=== PATIENT | male | born 1945 | race Caucasian/White ===

== ENCOUNTER 2016-10-17 18:37 | Inpatient (IN) | payer OTHER ==
[~2016-10-17] VITALS: Ht 177.8 cm; Wt 80.9 kg
--- NOTE | 2016-10-17 20:38 | ED ORDER SUMMARY ---
..... Patient: SULMA GONSALEZ OrderSheet [facility] VisitID: [id number] [place] [address] 70y, M Registration Date/Time: 10/17/2016 ORDER SHEET Weight: 79.3 kg Allergies: No Known Drug Allergy GENERAL ORDERS: CBC w Diff Urgent (19:10/17/2016 Gustavo Minor) (19:13 EIbety R.N.) CMP Urgent (19:10/17/2016 Gustavo Minor) (19:13 Mahad R.N.) UA-Culture if indicated Urgent (19:10/17/2016 Gustavo Minor) (Ack 19:24 SRedmond) PT with INR Urgent (19:10/17/2016 Gustavo Minor) (19:13 Mahad R.N.) PTT Urgent (19:10/17/2016 Gustavo Minor) (19:13 EIbety R.N.) Type & Screen Urgent (19:10/17/2016 Gustavo Minor) (19:13 Mahad R.N.) EKG - ER Stat (21:26 10/17/2016 Nicole Stanley verbal order read back to Gustavo Minor) (Ack 21:30 SRedmond) (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 (21:48 10/17/2016)] [Electronically signed by Susie Goldstein R.N. (21:53 10/17/2016)] [Electronically locked/signed by Susie Goldstein R.N. (21:53 10/17/2016)]
--- NOTE | 2016-10-17 20:38 | ED NURSING NOTES ---
Clinical Report - Nurses [facility] [address] [place] [address] 10/17/2016 18:38 Patient: SULMA GONSALEZ TRIAGE Triage time 18:40. Acuity: LEVEL 3. Chief Complaint: (hematemasis, hematochezia x 1 day with lightheadedness.). --18:45 Shannan Garcia R.N. 18:40 10/17/16. BP: 98/67. HR: 91. RR: 20. O2 saturation: 98%. Temp: 98.6 F. --18:45 Shannan Garcia R.N. Weight: 79.3 kg. Height/Length: 70 inches. BMI: 25.1. --18:44 Shannan Garcia R.N. Medications Levothyroxine Sodium Oral 80 mcg, daily. --18:42 Shannan Garcia R.N. Glucosamine Complex Oral. --18:42 Shannan Garcia R.N. Allergies No Known Drug Allergy. --18:41 Shannan Garcia R.N. History Historian: patient (EMS). This started today. He has had difficulty breathing. ( light headed, "cold sweat"). 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 SOCIAL HX: Light tobacco smoker (cigarette)- less than 1/2 a pack per day. History of occasional drug use: marijuana. Recently used drugs yesterday. No alcohol use. No infectious disease exposure. SELF HARM ASSESSMENT: A self harm assessment was performed. The patient answered "no" to the question "Do you have thoughts of harming or killing yourself?". Bedside precautions. --18:45 Shannan Garcia R.N. Interventions ID band on patient. --18:45 Shannan Garcia R.N. PHYSICAL ASSESSMENT 19:14 10/17/16. GENERAL / NEURO / PSYCH: Alert. Oriented X 4. Appears in no acute distress. HEENT: Pupils equal, round and reactive to light. No facial asymmetry noted. Mucous membranes are pink. RESPIRATORY: Breath sounds within normal limits. CVS: Normal sinus rhythm noted. Capillary refill less than 2 seconds. Pulses within normal limits. GI / : Abdomen soft. SKIN: Skin intact. Skin is warm and dry. Normal skin turgor. --19:14 Susie Goldstein R.N. NURSING PROGRESS NOTES 18:52 10/17/2016 Site #1 started prior to arrival by EMS via IV in the right antecubital space with an 18g angiocath. --19:02 Shannan Garcia R.N. 19:00 10/17/16. Care transferred and report received (from RANULFO Campbell). --19:00 Susie Goldstein R.N. ( chaperoned rectal exam with ). --19:03 Shannan Garcia R.N. 19:11 10/17/16. Patient ID band checked for patient name and birthdate: patient confirmed. Blood samples drawn from the peripheral IV site (prior to IV fluid start) by nurse ; labeled in presence of the patient and sent to lab: rainbow set and blood bank tube. Initial blood discarded. Line flushed with 10 mL normal saline post blood draw. --19:11 Susie Goldstein R.N. 19:13 10/17/2016 PROTONIX (Pantoprazole Sodium) IVP 80 mg given over 4 minute(s) via site #1. Allergies verified and confirmed 5 rights. IV patency established. IV site checked: no pain, redness, or swelling. IV flushed thoroughly pre- and post-medication administration. IVP given by RN. --19:13 Susie Goldstein R.N. 19:40 10/17/16. Cardiac rhythm: normal sinus rhythm. --19:40 Susie Goldstein R.N. 19:40 10/17/16. BP: 110/80. HR: 94. RR: 18. O2 saturation: 100%. Pain level now 0/10. --19:40 Susie Goldstein R.N. 20:45 10/17/16. Cardiac rhythm: normal sinus rhythm. The patient reports no complaints and he is resting quietly. --20:45 Susie Goldstein R.N. 20:45 10/17/16. BP: 124/96. HR: 100. RR: 18. O2 saturation: 100%. Pain level now 0/10. --20:45 Susie Goldstein R.N. 21:13 10/17/16. ( Waiting for admission orders. Room is ready.). --21:13 Susie Goldstein R.N. EKG time: (2136). EKG was ordered, performed by a tech and shown to the ED physician. --21:39 Jaime Cain, ER Executive Steward. DISPOSITION / DISCHARGE 21:20 10/17/2016 Site #[address] upon admission; patent. Good blood return present. Flushed with 5 mL saline; flushes easily. --21:20 Susie Goldstein R.N. 21:20 10/17/16. Cardiac rhythm: normal sinus rhythm. The goals identified in the patient's plan of care were met. Disposition: observation in Acute Care (). Report was given to a nurse via a phone call. Report included patient's care, treatment, medications, reviewed medication reconcilliation, and condition (including any recent changes or anticipated changes). All questions were answered. Report was acknowledged. (brent Moraes RN). --21:20 Susie Goldstein R.N. 21:20 10/17/16. BP: 104/78. HR: 88. RR: 18. O2 saturation: 100%. Temp: 98.5 F. Pain level now 0/10. --21:20 Susie Goldstein R.N. 21:45 10/17/16. Transported via stretcher. --21:45 Susie Goldstein R.N. 21:46 10/17/16. Departure time: 21:45 Oct 17 2016. --21:46 Susie Goldstein R.N. Locked/Released at 10/17/2016 21:53 by Susie Goldstein R.N.
--- NOTE | 2016-10-17 20:38 | ED NURSING NOTES ---
Clinical Report - Nurses [facility] [address] [place] [address] 10/17/2016 18:38 Patient: SULMA GONSALEZ TRIAGE Triage time 18:40. Acuity: LEVEL 3. Chief Complaint: (hematemasis, hematochezia x 1 day with lightheadedness.). --18:45 Shannan Garcia R.N. 18:40 10/17/16. BP: 98/67. HR: 91. RR: 20. O2 saturation: 98%. Temp: 98.6 F. --18:45 Shannan Garcia R.N. Weight: 79.3 kg. Height/Length: 70 inches. BMI: 25.1. --18:44 Shannan Garcia R.N. Medications Levothyroxine Sodium Oral 80 mcg, daily. --18:42 Shannan Garcia R.N. Glucosamine Complex Oral. --18:42 Shannan Garcia R.N. Allergies No Known Drug Allergy. --18:41 Shannan Garcia R.N. History Historian: patient (EMS). This started today. He has had difficulty breathing. ( light headed, "cold sweat"). 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 SOCIAL HX: Light tobacco smoker (cigarette)- less than 1/2 a pack per day. History of occasional drug use: marijuana. Recently used drugs yesterday. No alcohol use. No infectious disease exposure. SELF HARM ASSESSMENT: A self harm assessment was performed. The patient answered "no" to the question "Do you have thoughts of harming or killing yourself?". Bedside precautions. --18:45 Shannan Garcia R.N. Interventions ID band on patient. --18:45 Shannan Garcia R.N. PHYSICAL ASSESSMENT 19:14 10/17/16. GENERAL / NEURO / PSYCH: Alert. Oriented X 4. Appears in no acute distress. HEENT: Pupils equal, round and reactive to light. No facial asymmetry noted. Mucous membranes are pink. RESPIRATORY: Breath sounds within normal limits. CVS: Normal sinus rhythm noted. Capillary refill less than 2 seconds. Pulses within normal limits. GI / : Abdomen soft. SKIN: Skin intact. Skin is warm and dry. Normal skin turgor. --19:14 Susie Goldstein R.N. NURSING PROGRESS NOTES 18:52 10/17/2016 Site #1 started prior to arrival by EMS via IV in the right antecubital space with an 18g angiocath. --19:02 Shannan Garcia R.N. 19:00 10/17/16. Care transferred and report received (from RANULFO Campbell). --19:00 Susie Goldstein R.N. ( chaperoned rectal exam with ). --19:03 Shannan Garcia R.N. 19:11 10/17/16. Patient ID band checked for patient name and birthdate: patient confirmed. Blood samples drawn from the peripheral IV site (prior to IV fluid start) by nurse ; labeled in presence of the patient and sent to lab: rainbow set and blood bank tube. Initial blood discarded. Line flushed with 10 mL normal saline post blood draw. --19:11 Susie Goldstein R.N. 19:13 10/17/2016 PROTONIX (Pantoprazole Sodium) IVP 80 mg given over 4 minute(s) via site #1. Allergies verified and confirmed 5 rights. IV patency established. IV site checked: no pain, redness, or swelling. IV flushed thoroughly pre- and post-medication administration. IVP given by RN. --19:13 Susie Goldstein R.N. 19:40 10/17/16. Cardiac rhythm: normal sinus rhythm. --19:40 Susie Goldstein R.N. 19:40 10/17/16. BP: 110/80. HR: 94. RR: 18. O2 saturation: 100%. Pain level now 0/10. --19:40 Susie Goldstein R.N. 20:45 10/17/16. Cardiac rhythm: normal sinus rhythm. The patient reports no complaints and he is resting quietly. --20:45 Susie Goldstein R.N. 20:45 10/17/16. BP: 124/96. HR: 100. RR: 18. O2 saturation: 100%. Pain level now 0/10. --20:45 Susie Goldstein R.N. 21:13 10/17/16. ( Waiting for admission orders. Room is ready.). --21:13 Susie Goldstein R.N. EKG time: (2136). EKG was ordered, performed by a tech and shown to the ED physician. --21:39 Jaime Cain, ER Senior Financial Reporting Accountant. DISPOSITION / DISCHARGE 21:20 10/17/2016 Site #[address] upon admission; patent. Good blood return present. Flushed with 5 mL saline; flushes easily. --21:20 Susie Goldstein R.N. 21:20 10/17/16. Cardiac rhythm: normal sinus rhythm. The goals identified in the patient's plan of care were met. Disposition: observation in Acute Care (). Report was given to a nurse via a phone call. Report included patient's care, treatment, medications, reviewed medication reconcilliation, and condition (including any recent changes or anticipated changes). All questions were answered. Report was acknowledged. (brent Moraes RN). --21:20 Susie Goldstein R.N. 21:20 10/17/16. BP: 104/78. HR: 88. RR: 18. O2 saturation: 100%. Temp: 98.5 F. Pain level now 0/10. --21:20 Susie Goldstein R.N. 21:45 10/17/16. Transported via stretcher. --21:45 Susie Goldstein R.N. 21:46 10/17/16. Departure time: 21:45 Oct 17 2016. --21:46 Susie Goldstein R.N. Locked/Released at 10/17/2016 21:53 by Susie Goldstein R.N.
--- NOTE | 2016-10-17 20:38 | ED CLINICAL REPORT ---
Clinical Report - Physicians/Mid Levels [facility] [address] [address] 10/17/2016 18:38 Patient: SULMA GONSALEZ Time Seen: 18:53; initial patient contact. Arrived- By ambulance. Historian- patient. HISTORY OF PRESENT ILLNESS Chief Complaint: VOMITING and DIARRHEA. This started today and is still present. It was abrupt in onset and has been intermittent. The patient has had vomiting, diarrhea and bloody stools. No flank pain. Has not recently been on antibiotics. The illness is described as moderate. Similar symptoms previously: None. Recent medical care: Not recently seen/assessed. REVIEW OF SYSTEMS No fever or fever. He has had chills, abdominal pain, bloody stools and moderate vomiting. The vomiting has been associated with vitaly blood. All systems otherwise negative, except as recorded above. PAST HISTORY ( Joint pain. Thyroid Disease. 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 Throat abscess removed.). Medications: Glucosamine Complex Oral. Levothyroxine Sodium Oral 80 mcg, daily. Allergies: No Known Drug Allergy. SOCIAL HISTORY Current every day smoker. History of drug use: marijuana. No alcohol use. ADDITIONAL NOTES The nursing notes have been reviewed with agreement regarding the chief complaint, PMH and patient medications and allergies. PHYSICAL EXAM Vital Signs: 10/17/2016 18:40 BP: 98/67. HR: 91. RR: 20. O2 saturation: 98%. Temp: 98.6 F. Have been reviewed. Hypotensive. Heart rate normal. Respiratory rate normal. Temperature normal. Oxygen saturation normal. Appearance: Alert. Oriented X3. No acute distress. Eyes: Eyes normal inspection. No pale conjunctivae. ENT: Pharynx normal. CVS: Normal heart rate and rhythm. Heart sounds normal. Respiratory: No respiratory distress. Breath sounds normal. Abdomen: Soft and nontender. Bowel sounds normal. No organomegaly. No mass. Single scar present in the upper abdomen (Splenectomy). Skin: Skin warm and dry. Normal skin color. Extremities: No lower extremity edema. Neuro: Oriented X 3. LABS, X-RAYS, AND EKG EKG: EKG time: (2136). No acute process. No acute ischemia. Normal sinus rhythm. Rate: 85. Normal P waves. Normal YVETTE. Normal QRS complex. Left axis deviation. Normal ST and T waves, QT and QTc. Prior EKG unavailable. The study has been interpreted contemporaneously by me. The study has been independently viewed by me. The EKG appears to be a good tracing. Interpretation time: 2137. Laboratory Tests: CBC w Diff: (AVTAR: 10/17/2016 19:15) [facility] Final results Test Result Flag Units (Reference) WHITE BLOOD COUNT 15.5 H K/uL (4.5-11.5) RED BLOOD COUNT 4.84 M/uL (4.50-5.90) HEMOGLOBIN 15.6 gm/dL (13.5-17.5) HEMATOCRIT 46.5 % (41.0-53.0) MEAN CELL VOLUME 96 fL (80-100) MEAN CORPUSCULAR HGB 32 pg (26-34) MEAN CORPUSCULAR HGB CONC 34 g/dL (31-37) RED CELL DISTRIBUTION WIDTH 15.1 H % (11.6-14.8) PLATELET COUNT 310 K/uL (150-400) NEUTROPHIL % 82.7 H % (50-75) LYMPH % 10.8 L % (25-40) MONO % 6.2 % (3-14) EOSINOPHIL % 0.1 % (0-4) BASOPHIL % 0.2 % (0-2) PT with INR: (AVTAR: 10/17/2016 19:15) ( [facility] 19[facility]39) Final results Test Result Flag Units (Reference) INR 1.0 (0.8-1.2) Low Intensity Therapy: INR 1.5-2.0 PT range 18.5-23.1Mod.Intensity Therapy: INR 2.0-3.0 PT range 23.1-31.5High Intensity Therapy: INR 2.5-3.5 PT range 27.4-35.5High Intensity Therapy 2: INR 3.0-4.0 PT range 31.5-39.3 APTT 31 SECONDS (24-34) CMP: (AVTAR: 10/17/2016 19:15) ( [facility] 10/17/2016 19:48) Final results Test Result Flag Units (Reference) GLUCOSE 94 mg/dL (70-110) BUN 40 H mg/dL (7-18) CREATININE 1.0 mg/dL (0.6-1.3) Estimated GFR >60 mL/min Estimated GFR- >60 mL/min Note: Persistent reduction over 3 months in eGFR<60 mL/min/1.73 m2 defines CKD. Patients with eGFR values>=60 mL/min/1.73 m2 may also have CKD if evidence ofpersistent proteinuria. Additional information may be foundat www.kidney.org. SODIUM 141 mmol/L (136-145) POTASSIUM 4.8 mmol/L (3.5-5.1) CHLORIDE 106 mmol/L (98-107) CARBON DIOXIDE 28 mmol/L (21-32) CALCIUM 8.6 mg/dL (8.5-10.1) TOTAL PROTEIN 6.9 g/dL (6.4-8.2) ALBUMIN 3.3 g/dL (3.3-5.0) BILIRUBIN, TOTAL 0.7 mg/dL (0.0-1.0) ALKALINE PHOSPHATASE 68 U/L (46-116) AST (SGOT) 35 U/L (15-37) ALT (SGPT) 26 U/L (12-78) Type & Screen: (AVTAR: 10/17/2016 19:15) ( MsgRcvd 10/17/2016 20:06) Final results Test Result Flag Units (Reference) PATIENT BLOOD TYPE O Positive Above is a corrected result. Previously reported on ( MsgRcvd 10/17/2016 19:45) as: PATIENT BLOOD TYPE O Positive ANTIBODY SCREEN NEGATIVE . PROGRESS AND PROCEDURES Discussed case with hospitalist, (call placed 20:37 Dr. Lee will bring pt in). Reviewed test results and need for additional work-up. Agreed upon decision to place in observation. Health care provider will see patient in ED. Consult obtained from surgery. call returned 20:25 Dr. Joe. Agreed w/ plan. Asked to admit to hospitalist and if pt becomes unstable, call him. Disposition: Condition: stable. CLINICAL IMPRESSION Occult and minor GI bleed with hematemesis and hematochezia. No hypotension or shock. Mild leukocytosis with bandemia. INSTRUCTIONS Your Current Medications: CONTINUE TAKING THE FOLLOWING MEDICATIONS: Glucosamine Complex Oral. Levothyroxine Sodium Oral : 80 mcg daily. Follow-up: Screening today revealed the patient's blood pressure to be in the normal range. (Electronically signed by Keyon Branch Dr. 10/17/2016 21:48)
--- NOTE | 2016-10-17 20:38 | ED ORDER SUMMARY ---
..... Patient: SULMA GONSALEZ OrderSheet [facility] VisitID: [id number] [place] [address] 70y, M Registration Date/Time: 10/17/2016 ORDER SHEET Weight: 79.3 kg Allergies: No Known Drug Allergy GENERAL ORDERS: CBC w Diff Urgent (19:10/17/2016 Gustavo Minor) (19:13 EIbety R.N.) CMP Urgent (19:10/17/2016 Gustavo Minor) (19:13 Mahad R.N.) UA-Culture if indicated Urgent (19:10/17/2016 Gustavo Minor) (Ack 19:24 SRedmond) PT with INR Urgent (19:10/17/2016 Gustavo Minor) (19:13 Mahad R.N.) PTT Urgent (19:10/17/2016 Gustavo Minor) (19:13 EIbety R.N.) Type & Screen Urgent (19:10/17/2016 Gustavo Minor) (19:13 Mahad R.N.) EKG - ER Stat (21:26 10/17/2016 Nicole Stanley verbal order read back to Gustavo Minor) (Ack 21:30 SRedmond) (21:38 [facility] ER Human Resource Assistant) Chest 1V Urgent (21:27 10/17/2016 Nicole Stanley verbal order read back to Romana Anderson) (Ack 21:30 SRedmond) MEDICATION ORDERS: IV FLUIDS: Protonix IVP 80mg 80 mg (Mix in NS 20ml over 4min) (19:10/17/2016 Gustavo Minor) (19:13 Mahad R.N.) ORDER SHEET NOTES: [Electronically signed by Keyon Branch Dr. (21:48 10/17/2016)] [Electronically signed by Susie Goldstein R.N. (21:53 10/17/2016)] [Electronically locked/signed by Susie Goldstein R.N. (21:53 10/17/2016)]
--- NOTE | 2016-10-17 21:53 | ED DISCHARGE INSTRUCTIONS ---
Patient: SULMA GONSALEZ General Instructions [facility] VisitID: [id number] [address] [place] [address] 70y, M Registration Date/Time: 10/17/2016 Occult and minor GI bleed with hematemesis and hematochezia. No hypotension or shock. Mild leukocytosis with bandemia. INSTRUCTIONS Your Current Medications: CONTINUE TAKING THE FOLLOWING MEDICATIONS: Glucosamine Complex Oral. Levothyroxine Sodium Oral : 80 mcg daily. Follow-up: Screening today revealed the patient's blood pressure to be in the normal range. (Electronically signed by Keyon Branch Dr. 10/17/2016 21:48)
--- NOTE | 2016-10-17 21:53 | ED MAR SUMMARY ---
..... Medication Administration Record [facility] [address] [place] [address] Patient: SULMA GONSALEZ Visit ID: [id number] 70y, M Weight: 79.3 kg Height/Length: 70 in BMI: 25.1 ALLERGIES: No Known Drug Allergy Given 19:13 10/17/2016 Susie Goldstein R.N. Medication Administered: PROTONIX [IVP] (PANTOPRAZOLE SODIUM), Dose: 80 mg IVP over 4 minute(s), Site: #1 right AC. Medication Ordered: Protonix IVP 80mg 80 mg (Mix in NS 20ml over 4min).
--- NOTE | 2016-10-17 21:53 | ED MED RECONCILIATION SUMMARY ---
Patient: SULMA GONSALEZ Medication Reconciliation Report [facility] VisitID: [id number] [address] [place] [address] 70y, M Registration Date/Time: 10/17/2016 Weight: 79.3 kg Height/Length: 70 in. BMI: 25.1 ALLERGIES: No Known Drug Allergy The patient's Home Medications are listed below: CONTINUE TAKING THE FOLLOWING MEDICATIONS: Glucosamine Complex Oral Levothyroxine Sodium Oral 80 mcg, daily The source(s) of the original Home Medication information: Not obtained. The following Medications were given to the patient in the Emergency Department: PROTONIX [IVP] IVP 80 mg, administered: 10/17/2016 7:13:00 PM The following Medications were prescribed to the patient: None.
--- NOTE | 2016-10-17 21:53 | ED MED RECONCILIATION SUMMARY ---
Patient: SULMA GONSALEZ Medication Reconciliation Report [facility] VisitID: [id number] [address] [place] [address] 70y, M Registration Date/Time: 10/17/2016 Weight: 79.3 kg Height/Length: 70 in. BMI: 25.1 ALLERGIES: No Known Drug Allergy The patient's Home Medications are listed below: CONTINUE TAKING THE FOLLOWING MEDICATIONS: Glucosamine Complex Oral Levothyroxine Sodium Oral 80 mcg, daily The source(s) of the original Home Medication information: Not obtained. The following Medications were given to the patient in the Emergency Department: PROTONIX [IVP] IVP 80 mg, administered: 10/17/2016 7:13:00 PM The following Medications were prescribed to the patient: None.
--- NOTE | 2016-10-17 21:53 | ED MAR SUMMARY ---
..... Medication Administration Record [facility] [address] [place] [address] Patient: SULMA GONSALEZ Visit ID: [id number] 70y, M Weight: 79.3 kg Height/Length: 70 in BMI: 25.1 ALLERGIES: No Known Drug Allergy Given 19:13 10/17/2016 Susie Goldstein R.N. Medication Administered: PROTONIX [IVP] (PANTOPRAZOLE SODIUM), Dose: 80 mg IVP over 4 minute(s), Site: #1 right AC. Medication Ordered: Protonix IVP 80mg 80 mg (Mix in NS 20ml over 4min).
--- NOTE | 2016-10-17 21:53 | ED DISCHARGE INSTRUCTIONS ---
Patient: SULMA GONSALEZ General Instructions [facility] VisitID: [id number] [address] [place] [address] 70y, M Registration Date/Time: 10/17/2016 Occult and minor GI bleed with hematemesis and hematochezia. No hypotension or shock. Mild leukocytosis with bandemia. INSTRUCTIONS Your Current Medications: CONTINUE TAKING THE FOLLOWING MEDICATIONS: Glucosamine Complex Oral. Levothyroxine Sodium Oral : 80 mcg daily. Follow-up: Screening today revealed the patient's blood pressure to be in the normal range. (Electronically signed by Keyon Branch Dr. 10/17/2016 21:48)
[2016-10-17 22:26] VITALS: BP 108/82
[2016-10-17] MEDS ORDERED: LEVOTHYROXINE88 MCG PO (22:26)
[2016-10-17] MEDS ORDERED: GLUCOSAMINE CHONDROI PO (22:27)
--- NOTE | 2016-10-17 22:45 | DIAGNOSTIC IMAGING REPORT ---
PROCEDURE: XR CHEST 1 VIEW INDICATION: GI BLEED TECHNIQUE: Single view chest. 2141 hours COMPARISON: None FINDINGS: Normal cardiomediastinal contour and central vessels. Mildly hyperinflated, hyperlucent lungs. 11 mm round dense nodule in the medial right lower lung, likely calcified. Small rounded calcifications scattered throughout the left upper lobe. No effusion or pneumothorax. Acute ninth and possibly 10th left rib fractures. IMPRESSION: 1. Changes of COPD. 2. Acute left ninth and tenth rib fractures, correlate with recent chest trauma. No evidence of pneumothorax. 3. Calcified right lower and left upper lung nodules, probably granulomatous disease.
[2016-10-18] VITALS (18 sets, daily range): BP systolic 94–140; BP diastolic 42–74
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
--- NOTE | 2016-10-18 07:39 | Progress Note ---
Subjective General Note Date: October 18, 2016 Admission Date: October 17, 2016 Hospital Day: 2 PCP: None Status: Inpatient Advanced Directive: Full Code Room: 209-A Brief History: The patient is a 70-year-old white male with a significant past medical history of COPD, Graves' disease, hypothyroidism, degenerative vertebral disc disease, nicotine dependence-smoking, who presented to [facility] emergency department on the day of admission secondary to complaints of hematemesis and melena. [facility] ER evaluation was consistent with upper GI bleed. Admission H&H 15.6/46.5. Secondary to the above, the patient was admitted by David Lee M.D. for further evaluation and treatment. For other history present illness, past medical history, family history, social history, review of systems, and admission physical examination please see the patient's history and physical examination and ER visit note in the patient's medical record. Subjective: The patient states she is doing well. Upper endoscopy today showed antral ulcer. Persistent bleeding post endoscopy Patient requests: None Medications and Allergies Medications Current Medications Sig/Marylu Start time Last Medication Dose Route Stop Time Status Admin Influenza Virus 0.5 ML 0900 10/18 0900 AC Vaccine IM 10/18 1800 Ondansetron HCl 4 MG Q4H PRN 10/17 2199 AC IV Sodium Chloride 1,000 ML ASDIRECTED 10/17 2199 AC 10/18 IV 0330 Allergies Coded Allergies: NKA (10/17/16) Physical Exam Vital Signs / I&Os Vital Signs Date Time Temp Pulse Resp B/P Pulse O2 O2 Flow FiO2 Ox Delivery Rate 10/18 0255 98.1 83 18 96/65 95 Room Air 10/17 2245 Room Air 10/17 2226 98.1 79 18 108/82 96 Room Air I&O 10/18 0000 10/17 1600 10/17 0800 Intake Total 60 Output Total Balance 60 General Appearance Alert, Oriented X3, Cooperative, No acute distress Lungs Clear to auscultation, Normal air movement Cardiovascular Regular rate and rhythm, Normal S1 and S2 Abdomen Normal bowel sounds, Soft, No tenderness, No guarding Extremities No cyanosis, No clubbing, No edema Neurological Cranial nerves intact, Strength 5/5 x4 ext's, No lateralizing signs Psych/Mental Status Mental status normal, Mood normal LAB Results Laboratory Tests 10/18 10/18 10/18 10/17 0505 0255 0055 1915 Chemistry Plasma Sodium (136 - 145 mmol/L) 145 141 Plasma Potassium (3.5 - 5.1 mmol/L) 4.3 4.8 Plasma Chloride (98 - 107 mmol/L) 110 106 CO2 (Enzymatic) (21 - 32 mmol/L) 27 28 BUN (7 - 18 mg/dL) 36 40 Creatinine (0.6 - 1.3 mg/dL) 1.0 1.0 Est GFR ( Amer) (mL/min) >60 >60 Est GFR (Non-Af Amer) (mL/min) >60 >60 Glucose (70 - 110 mg/dL) 98 94 Plasma Calcium (8.5 - 10.1 mg/dL) 8.6 8.6 Plasma Magnesium (1.8 - 2.4 mg/dL) 2.1 Total Bilirubin (0.0 - 1.0 mg/dL) 0.7 AST (15 - 37 U/L) 35 ALT (12 - 78 U/L) 26 Alkaline Phosphatase (46 - 116 U/L) 68 Total Protein (6.4 - 8.2 g/dL) 6.9 Albumin (3.3 - 5.0 g/dL) 3.3 Coagulation INR (0.8 - 1.2) 1.0 APTT (24 - 34 SECONDS) 31 Hematology WBC (4.5 - 11.5 K/uL) 11.0 15.5 RBC (4.50 - 5.90 M/uL) 3.99 4.84 Hgb (13.5 - 17.5 gm/dL) 12.8 14.1 15.6 Hct (41.0 - 53.0 %) 38.4 42.3 46.5 MCV (80 - 100 fL) 96 96 MCH (26 - 34 pg) 32 32 RDW (11.6 - 14.8 %) 15.4 15.1 Neut % (Auto) (50 - 75 %) 49.6 82.7 Lymph % (Auto) (25 - 40 %) 39.3 10.8 [place] % (Auto) (3 - 14 %) 9.1 6.2 Eos % (Auto) (0 - 4 %) 1.2 0.1 Baso % (Auto) (0 - 2 %) 0.8 0.2 Plt Count, EDTA (150 - 400 K/uL) 298 310 PUBS MCHC (31 - 37 g/dL) 33 34 Urines Urine Color YELLOW Urine Appearance CLEAR Urine pH (5.0 - 8.0) 5.5 Ur Specific [place] (1.010 - 1.030) 1.015 Urine Protein (NEGATIVE) NEGATIVE Urine Ketones (NEGATIVE) NEGATIVE Urine Blood (NEGATIVE) NEGATIVE Urine Nitrite (NEGATIVE) NEGATIVE Urine Bilirubin (NEGATIVE) NEGATIVE Urine Urobilinogen (0.2 - 1.0 EU/dL) 0.2 Ur Leukocyte Esterase (NEGATIVE) NEGATIVE Urine RBC (0 - 1 rbc/hpf) 0-1 Urine WBC (0 - 1 wbc/hpf) 0-1 Ur Epithelial Cells (0 - 5 EPI/hpf) 0-1 Urine Bacteria (NONE SEEN) NONE SEEN Urine Glucose (NEGATIVE) NEGATIVE Urine Comment CULT NOT INDICATED Assessment and Plan Problem List 1. Upper GI bleed Plan -Patient presents with findings of upper GI bleed -Upper endoscopy consistent with antral ulcer with moderate risk of rebleeding -Patient with bleeding post endoscopy -We'll transfer to ICU for closer observation -Patient typed and screened -IV fluid therapy -Continue Protonix 40 mg IV twice a day and Carafate 1 g by mouth before meals and at bedtime -Dr. Wheat notified does not feel further therapeutic endoscopy indicated at this time. 2. Leukocytosis Plan -Probably stress related -No signs of infection -Monitor 3. COPD (chronic obstructive pulmonary disease) Status Chronic Onset Date Unknown Plan -Patient with history of asthma/COPD -Not problematic at this time -DuoNeb when necessary every 6 hours -Normal O2 sats on room air 4. Hypothyroidism Status Chronic Onset Date Unknown Plan -Place patient back on her outpatient medical regimen -Check TSH in a.m. -Outpatient follow-up with PCP 5. Degenerative disc disease Status Chronic Onset Date Unknown Plan -Stable -Dilaudid when necessary for pain -Not problematic at this time Current status: Fair, unstable Anticipated discharge date: Anticipated discharge 1-2 days Anticipated discharge placement: Home Patient care time: Time spent in chart review, patient interview, physical exam, CPOE, and care documentation: 45 minutes Visit to patient today: 2 Complexity of care: High The patient was transferred to the medical intensive care unit secondary to rebleeding status post upper endoscopy. Patient typed and screened. IV fluid bolus normal saline 500 cc. Monitor closely E&M Codes Rounding: Inpt-High/[id number]
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
--- NOTE | 2016-10-18 15:11 | OPERATIVE REPORT ---
DATE OF SURGERY: 10/18/2016 SURGEON: Orion Wheat MD PREOPERATIVE DIAGNOSIS: 1. Upper gastrointestinal bleed POSTOPERATIVE DIAGNOSIS: 1. Gastric ulcer (antral) PROCEDURE PERFORMED: 1. Esophagogastroduodenoscopy with biopsy ANESTHESIA: Total IV general. INDICATIONS: The patient is a 70-year-old man presenting with hematemesis and melena with a history of NSAIDs and alcohol use. SURGICAL TECHNIQUE: The patient was taken to the operating room, where total IV general was administered and the patient was placed in the left lateral decubitus position. A well-lubricated endoscope was inserted down into the stomach and duodenum under direct vision. There was a fair amount of old clot still in the gastric body. As much as possible was irrigated and suctioned out. The pylorus was identified and was entered. There was old blood and some red blood in the pylorus and in the duodenum, but examination of the first and second parts of the duodenum revealed no ulcers or bleeding sources. On further withdrawal, there was a punched out ulcer just in the antrum. This had some adherent clot in it, but when irrigated out was no longer actively bleeding. The base had a white fibrinous appearance, but no visible vessel. There was swelling around it, but no appearance of malignancy. Examination of the esophagus and upper stomach revealed no evidence of varices. There was still some old clot up in the fundus of the stomach, which was thick and organized and was not removed at this time. In summary, this patient has an antral ulcer with fresh clot adherent which is no longer bleeding. This ulcer has only [id number] risk of bleeding since it is not particularly deep or near a named vessel. This patient will be managed with medical means.
[2016-10-19] VITALS (31 sets, daily range): BP systolic 81–112; BP diastolic 41–61
--- NOTE | 2016-10-19 18:38 | Progress Note ---
Subjective General Note Date: October 19, 2016 Admission Date: October 17, 2016 Hospital Day: 3 PCP: None Status: Inpatient Advanced Directive: Full Code Room: 209-A Brief History: The patient is a 70-year-old white male with a significant past medical history of COPD, Graves' disease, hypothyroidism, degenerative vertebral disc disease, nicotine dependence-smoking, who presented to [facility] emergency department on the day of admission secondary to complaints of hematemesis and melena. [facility] ER evaluation was consistent with upper GI bleed. Admission H&H 15.6/46.5. Secondary to the above, the patient was admitted by David Lee M.D. for further evaluation and treatment. For other history present illness, past medical history, family history, social history, review of systems, and admission physical examination please see the patient's history and physical examination and ER visit note in the patient's medical record. Subjective: The patient states he is doing well. Upper endoscopy today showed antral ulcer. No bleeding since last night. No other complaints at this time. Patient requests: None Medications and Allergies Medications Current Medications Sig/Marylu Start time Last Medication Dose Route Stop Time Status Admin Triamcinolone See Dose BID 10/19 1326 AC 10/19 Acetonide Insts (1) TOP 1612 Sodium Chloride 250 ML .[FOR TRANSFUSION] 10/19 0745 AC IV Sucralfate 1 GM ACHS 10/18 1630 AC 10/19 PO 1612 Morphine Sulfate 2 MG Q3M PRN 10/18 1200 AC 10/19 IV 1331 Ondansetron HCl 4 MG Q6H PRN 10/18 1200 AC IV Sodium Chloride 1,000 ML ASDIRECTED 10/18 1200 AC 10/18 IV 2130 Levothyroxine Sodium 88 MCG 0600 10/18 0900 AC 10/19 PO 0530 Albuterol/Ipratropium 3 ML RTQ6H PRN 10/18 0745 AC IN Pantoprazole Sodium 40 MG PPIBID 10/18 0745 AC 10/19 IV 1612 Dose Instructions: (1)Triamcinolone Acetonide: APPLY TO AFFECTED AREA BID Allergies Coded Allergies: NKA (10/17/16) Physical Exam Vital Signs / I&Os Vital Signs Date Time Temp Pulse Resp B/P Pulse O2 O2 Flow FiO2 Ox Delivery Rate 10/19 1806 98.4 63 20 93/58 99 Nasal Cannula 10/19 1714 68 16 100/53 100 Nasal Cannula 10/19 1610 98.2 52 12 101/41 100 Nasal Cannula 10/19 1518 63 12 108/58 100 Nasal 0.0 Cannula 10/19 1430 98.4 55 12 94/56 97 Nasal Cannula 10/19 1400 97.9 55 16 97/61 99 / 1300 98.1 67 14 94/51 99 03/ 1236 98.1 65 13 106/54 99 03 1221 98.4 65 13 97/57 99 10/19 1157 98.4 66 14 94/55 100 03 1045 98.1 67 13 108/58 99 03/ 1015 98.4 66 17 103/61 100 03 1001 98.1 62 12 99/56 100 10/19 0938 98.1 64 17 111/54 100 10/19 0900 59 16 112/58 99 Nasal 0.0 Cannula 10/19 0826 66 13 107/58 98 Nasal 0.0 Cannula 10/19 0805 82 15 81/57 99 Nasal 0.0 Cannula 10/19 0800 83 21 85/55 99 Nasal 0.0 Cannula 10/19 0700 65 16 100/57 97 Nasal 0.0 Cannula 10/19 0636 98.1 10/19 0600 67 12 100/55 97 Nasal Cannula 10/19 0558 97.9 10/19 0500 63 13 90/53 96 10/19 0400 92/45 10/19 0300 69 12 92/55 96 10/19 0200 63 14 89/58 97 Nasal 2.0 Cannula 10/19 0119 85/54 10/19 0000 72 14 91/55 97 Nasal 2.0 Cannula 10/18 2315 97.5 71 12 94/42 99 Nasal 2.0 Cannula 10/18 2202 67 12 107/59 99 Nasal 2.0 Cannula 10/18 2106 66 12 102/60 100 Nasal 2.0 Cannula 10/18 2002 68 13 102/61 99 Nasal 2.0 Cannula 10/18 194 2.0 10/18 193 Nasal 2.0 Cannula 10/18 191 66 15 102/62 100 Nasal 2.0 Cannula I&O 10/19 0000 10/18 1600 10/18 0800 Intake Total 1218 1160 Output Total 370 400 625 Balance -370 818 535 General Appearance Alert, Oriented X3, Cooperative, No acute distress Lungs Clear to auscultation, Normal air movement Cardiovascular Regular rate and rhythm, Normal S1 and S2 Abdomen Normal bowel sounds, Soft, No tenderness Extremities No cyanosis, No clubbing, No edema Neurological Cranial nerves intact, No lateralizing signs Psych/Mental Status Mental status normal, Mood normal LAB Results Laboratory Tests 10/19 10/19 10/18 1607 0555 2346 Hematology WBC (4.5 - 11.5 K/uL) 9.3 RBC (4.50 - 5.90 M/uL) 3.09 Hgb (13.5 - 17.5 gm/dL) 9.6 8.0 8.7 Hct (41.0 - 53.0 %) 28.7 24.3 26.1 MCV (80 - 100 fL) 93 MCH (26 - 34 pg) 31 RDW (11.6 - 14.8 %) 16.3 Neut % (Auto) (50 - 75 %) 34.6 Lymph % (Auto) (25 - 40 %) 48.3 [place] % (Auto) (3 - 14 %) 12.7 Eos % (Auto) (0 - 4 %) 2.8 Baso % (Auto) (0 - 2 %) 1.6 Plt Count, EDTA (150 - 400 K/uL) 184 PUBS MCHC (31 - 37 g/dL) 34 Assessment and Plan Problem List 1. Upper GI bleed Plan -Patient status post transfusion 2 units packed RBCs -H&H improved -H&H posttransfusion 9.6/28.7 -No evidence of ongoing bleeding at this time -Serial hematocrits at 6 hours -Continue Protonix 40 mg IV twice a day and Carafate 1 g by mouth before meals and at bedtime -Monitor 2. Hypothyroidism Status Chronic Onset Date Unknown Plan -Stable -Continue outpatient treatment. -Outpatient follow up with PCP 3. Degenerative disc disease Status Chronic Onset Date Unknown Plan -Stable -Treatment with Tylenol, narcotic analgesics -Not problematic at this time Current status: Fair, improved Anticipated discharge date: Anticipated discharge in 1-2 days Anticipated discharge placement: Home Patient care time: Time spent in chart review, patient interview, physical exam, CPOE, and care documentation: 25 minutes Visit to patient today: 1 Complexity of care: Moderate E&M Codes Rounding: Inpt-Moderate/[id number]
[2016-10-20] VITALS (11 sets, daily range): BP systolic 83–118; BP diastolic 50–66
--- NOTE | 2016-10-20 07:59 | Progress Note ---
Subjective General Note Date: October 20, 2016 Admission Date: October 17, 2016 Hospital Day: 4 PCP: None Status: Inpatient Advanced Directive: Full Code Room: 305 Brief History: The patient is a 70-year-old white male with a significant past medical history of COPD, Graves' disease, hypothyroidism, degenerative vertebral disc disease, nicotine dependence-smoking, who presented to [facility] emergency department on the day of admission secondary to complaints of hematemesis and melena. [facility] ER evaluation was consistent with upper GI bleed. Admission H&H 15.6/46.5. Secondary to the above, the patient was admitted by David Lee M.D. for further evaluation and treatment. For other history present illness, past medical history, family history, social history, review of systems, and admission physical examination please see the patient's history and physical examination and ER visit note in the patient's medical record. Subjective: The patient states he is doing well today. Ready for discharge. No abdominal pain. Patient requests: None Medications and Allergies Medications Current Medications Sig/Marylu Start time Last Medication Dose Route Stop Time Status Admin Acetaminophen 650 MG Q6H PRN 10/19 2145 AC 10/19 PO 2209 Morphine Sulfate 2 MG Q1H PRN 10/19 2145 AC 10/19 IV 2209 Triamcinolone See Dose BID 10/19 1326 AC 10/19 Acetonide Insts (1) TOP 2005 Sodium Chloride 250 ML .[FOR TRANSFUSION] 10/19 0745 AC IV Sucralfate 1 GM ACHS 10/18 1630 AC 10/19 PO 2006 Ondansetron HCl 4 MG Q6H PRN 10/18 1200 AC IV Sodium Chloride 1,000 ML ASDIRECTED 10/18 1200 AC 10/19 IV 2006 Levothyroxine Sodium 88 MCG 0600 10/18 0900 AC 10/20 PO 0617 Albuterol/Ipratropium 3 ML RTQ6H PRN 10/18 0745 AC IN Pantoprazole Sodium 40 MG PPIBID 10/18 0745 AC 10/20 IV 0617 Dose Instructions: (1)Triamcinolone Acetonide: APPLY TO AFFECTED AREA BID Allergies Coded Allergies: NKA (10/17/16) Physical Exam Vital Signs / I&Os Vital Signs Date Time Temp Pulse Resp B/P Pulse O2 O2 Flow FiO2 Ox Delivery Rate 10/20 0700 52 15 113/53 96 Room Air 0.0 10/20 0612 98.2 57 12 106/50 96 Room Air 10/20 0500 47 12 91/57 100 Room Air 10/20 0400 50 12 101/55 99 Room Air 10/20 0300 47 12 99/50 98 Room Air 10/20 0229 98.1 56 13 88/53 98 Room Air 10/20 0100 44 12 87/50 96 Room Air 10/20 0000 50 12 83/51 95 Room Air 10/19 2324 53 14 94/53 97 Room Air 10/19 2219 Room Air 10/19 2200 98.2 64 19 93/60 96 Room Air 10/19 2100 58 20 99/61 98 Room Air 10/19 2000 60 19 91/57 100 Room Air 10/19 1912 51 14 109/55 99 Room Air 10/19 1806 98.4 63 20 93/58 99 Nasal Cannula 10/19 1714 68 16 100/53 100 Nasal Cannula 10/19 1610 98.2 52 12 101/41 100 Nasal Cannula 10/19 1518 63 12 108/58 100 Nasal 0.0 Cannula 10/19 1430 98.4 55 12 94/56 97 Nasal Cannula 10/19 1400 97.9 55 16 97/61 99 10/19 1300 98.1 67 14 94/51 99 10/19 1236 98.1 65 13 106/54 99 10/19 1221 98.4 65 13 97/57 99 10/19 1157 98.4 66 14 94/55 100 10/19 1045 98.1 67 13 108/58 99 10/19 1015 98.4 66 17 103/61 100 10/19 1001 98.1 62 12 99/56 100 10/19 0938 98.1 64 17 111/54 100 10/19 0900 59 16 112/58 99 Nasal 0.0 Cannula 10/19 0826 66 13 107/58 98 Nasal 0.0 Cannula 10/19 0805 82 15 81/57 99 Nasal 0.0 Cannula 10/19 0800 83 21 85/55 99 Nasal 0.0 Cannula I&O 10/20 0000 10/19 1600 10/19 0800 Intake Total 1293 710 Output Total 825 500 340 Balance 468 210 -340 General Appearance Alert, Oriented X3, Cooperative, No acute distress Lungs Clear to auscultation, Normal air movement Cardiovascular Regular rate and rhythm, Normal S1 and S2 Abdomen Normal bowel sounds, Soft, No tenderness, No guarding Extremities No cyanosis, No clubbing, No edema Neurological Grossly normal Psych/Mental Status Mental status normal, Mood normal LAB Results Laboratory Tests 10/20 10/19 10/19 0425 2200 1607 Hematology WBC (4.5 - 11.5 K/uL) 8.8 9.7 9.3 RBC (4.50 - 5.90 M/uL) 2.88 3.05 3.09 Hgb (13.5 - 17.5 gm/dL) 9.0 9.6 9.6 Hct (41.0 - 53.0 %) 27.0 28.7 28.7 MCV (80 - 100 fL) 94 94 93 MCH (26 - 34 pg) 31 32 31 RDW (11.6 - 14.8 %) 16.8 16.3 16.3 Neut % (Auto) (50 - 75 %) 41.0 40.6 34.6 Lymph % (Auto) (25 - 40 %) 42.4 43.4 48.3 [place] % (Auto) (3 - 14 %) 10.5 11.5 12.7 Eos % (Auto) (0 - 4 %) 4.6 3.0 2.8 Baso % (Auto) (0 - 2 %) 1.5 1.5 1.6 Plt Count, EDTA (150 - 400 K/uL) 179 190 184 PUBS MCHC (31 - 37 g/dL) 33 34 34 Assessment and Plan Problem List 1. Upper GI bleed Plan -Upper GI bleed secondary to peptic ulcer disease -No evidence of bleeding over the past 24 hours -H&H stable -Discharge today, Protonix 40 mg by mouth twice a day, Carafate 1 g by mouth before meals and at bedtime 2. Hypothyroidism Status Chronic Onset Date Unknown Plan -Stable -Outpatient follow-up -DC'd today 3. Degenerative disc disease Status Chronic Onset Date Unknown Plan -Stable -Tylenol when necessary for pain -Outpatient follow-up with PCP -Avoid nonsteroidal anti-inflammatory agents Current status: Good, improved Anticipated discharge date: Today Anticipated discharge placement: Home Patient care time: Time spent in chart review, patient interview, physical exam, CPOE, and care documentation: Greater than 30 minutes Visit to patient today: 2 Complexity of care: Moderate For other recommendations regarding discharge diet, activity, followup, and discharge medications please see the patient's discharge instructions. Greater than 30 min. was spent in the patient's discharge preparation including discharge interview and physical examination, progress note, discharge instructions, and discharge summary E&M Codes Discharge: Inpt >30 min spent/[id number]
[2016-10-20] MEDS ORDERED: PROTONIX40 M1 PO (12:51)
[2016-10-20] MEDS ORDERED: CARAFATE EQUIVAL1 GM PO (12:51)
[2016-10-20] MEDS ORDERED: MAPAP325 MG PO (12:51)
--- NOTE | 2016-10-20 12:53 | Provider's Discharge Care Plan ---
Problem, Goal, Plan Problem List 1. Peptic ulcer disease Goals: Improve disease control, Prevent disease progress Instructions: Follow up as directed, Take meds as directed 2. Hypothyroidism Goals: Improve disease control, Prevent disease progress Instructions: Follow up as directed, Take meds as directed 3. Anemia Goals: Improve disease control, Prevent disease progress Instructions: Follow up as directed, Take meds as directed, Do not begin iron therapy for one week.
[2016-10-20] MEDS ORDERED: FERROUS SULFAT325 M1 PO (12:54)
--- NOTE | 2016-10-20 13:02 | Discharge Summary ---
Discharge Summary Report Admit Date 10/18/16 Discharge Date 10/20/16 Admission Diagnosis 1. Upper GI bleed 2. Hypothyroidism 3. Nicotine dependence-smoking 4. Degenerative disc disease Discharge Diagnosis 1. Upper GI bleed secondary to peptic ulcer disease 2. Hypothyroidism 3. Nicotine dependence-smoking 4. Degenerative disc disease 5. Anemia Brief History The patient is a 70-year-old white male with a significant past medical history of COPD, Graves' disease, hypothyroidism, degenerative vertebral disc disease, nicotine dependence-smoking, who presented to [facility] emergency department on the day of admission secondary to complaints of hematemesis and melena. [facility] ER evaluation was consistent with upper GI bleed. Admission H&H 15.6/46.5. Secondary to the above, the patient was admitted by David Lee M.D. for further evaluation and treatment. For other history present illness, past medical history, family history, social history, review of systems, and admission physical examination please see the patient's history and physical examination and ER visit note in the patient's medical record. Hospital Course The following problems and their management were noted during the patient's hospitalization: 1. Upper GI bleed secondary to peptic ulcer disease The patient presented with findings of upper GI bleed. Subsequent endoscopy consistent with peptic ulcer disease. Patient treated with IV Protonix/ Carafate. Patient observed somewhat longer in the hospital secondary to high risk of rebleed. Status stable with increasing H&H at the time of discharge. Patient discharged on Protonix/Carafate. Outpatient follow-up with PCP next week 2. Hypothyroidism Stable. No further evaluation. Outpatient follow-up with PCP 3. Nicotine dependence-smoking Patient with history of nicotine dependence-smoking. Smoking cessation education. Encourage smoking abstinence postdischarge. NicoDerm patch when necessary. 4. Degenerative disc disease Stable. The patient was cautioned about the use of nonsteroidal anti- inflammatory agents. Outpatient follow-up with PCP. 5. Anemia See above. Follow-up with PCP. See discharge instructions. H&H improving at the time of discharge. Lab/Imaging Laboratory Tests 10/20 10/20 10/19 10/19 1150 0425 2200 1607 Hematology WBC (4.5 - 11.5 K/uL) 8.8 9.7 9.3 RBC (4.50 - 5.90 M/uL) 2.88 3.05 3.09 Hgb (13.5 - 17.5 gm/dL) 9.6 9.0 9.6 9.6 Hct (41.0 - 53.0 %) 28.6 27.0 28.7 28.7 MCV (80 - 100 fL) 94 94 93 MCH (26 - 34 pg) 31 32 31 RDW (11.6 - 14.8 %) 16.8 16.3 16.3 Neut % (Auto) (50 - 75 %) 41.0 40.6 34.6 Lymph % (Auto) (25 - 40 %) 42.4 43.4 48.3 [place] % (Auto) (3 - 14 %) 10.5 11.5 12.7 Eos % (Auto) (0 - 4 %) 4.6 3.0 2.8 Baso % (Auto) (0 - 2 %) 1.5 1.5 1.6 Plt Count, EDTA (150 - 400 K/uL) 179 190 184 PUBS MCHC (31 - 37 g/dL) 33 34 34 Discharge Instructions/Meds For other recommendations regarding discharge diet, activity, followup, and discharge medications please see the patient's discharge instructions. Discharge condition: Good, improved Greater than 30 min. was spent in the patient's discharge preparation including discharge interview and physical examination, progress note, discharge instructions, and discharge summary The patient was interviewed and examined on the day of discharge. E&M Codes Discharge: Inpt >30 min spent/[id number]
== END 2016-10-20 13:40 | disposition home or self-care (01) | DRG 379 ==
LOC: ED SRH 18:37 → ACUTE2 SRH 20:38 → TRANS SRH 20:38 → ACUTE2 SRH 21:55 → CC SRH 10-18 17:48
PROVIDERS: Surgery; ADMIT Family Medicine
PROC: 30233N1 Transfusion of Nonautologous Red Blood Cells into Peripheral Vein, Percutaneous Approach (ICD-10-PCS; 2016-10-18)
PROC: 3E0234Z Introduction of Serum, Toxoid and Vaccine into Muscle, Percutaneous Approach (ICD-10-PCS; 2016-10-18)
PROC: 0DB68ZX Excision of Stomach, Via Natural or Artificial Opening Endoscopic, Diagnostic (ICD-10-PCS; principal; 2016-10-18 13:30)
DX: K25.4 Chronic or unspecified gastric ulcer with hemorrhage (principal); E89.0 Postprocedural hypothyroidism; Z79.82 Long term (current) use of aspirin; M50.30 Other cervical disc degeneration, unspecified cervical region; M25.519 Pain in unspecified shoulder; F17.200 Nicotine dependence, unspecified, uncomplicated; J44.9 Chronic obstructive pulmonary disease, unspecified; Z23 Encounter for immunization; D64.9 Anemia, unspecified
CPT/HCPCS: 29257; 29262; 29264; 50004; 60001; 82943; 83526; 90001; 90004; 90047; 90074; 90100; 90155; 90705; 91004; 91162; 91163; 91544; 92132; 92720; 94001; 94060; 95059